=== PATIENT | female | born 1990 | race Caucasian/White ===

== ENCOUNTER 2021-10-29 10:51 | Inpatient (IN) | payer OTHER ==
[2021-10-29] MEDS ORDERED: CARBOPROST TROMETHAMINE 250 MCG/ML 1 ML AMP IM PRN (11:20)
[2021-10-29] MEDS ORDERED: LIDOCAINE 0.5% (PF) 5 MG/ML (50 ML SDV) SQ PRN (11:20)
[2021-10-29] MEDS ORDERED: OXYTOCIN 10 UNIT/ML 1 ML VIAL IM PRN (11:20)
[2021-10-29] MEDS ORDERED: METHYLERGONOVINE 0.2 MG/ML 1 ML AMP IM PRN (11:20)
[2021-10-29] MEDS ORDERED: TERBUTALINE 1 MG/ML VIAL SQ PRN (11:20)
[2021-10-29] MEDS: LACTATED RINGERS 1,000 ML IV SCH ×2 (11:44→12:20)
[2021-10-29 12:00] LABS: Basophils % (A) 0 %; Eosinophils % (A) 0 %; HCT 41.9 % (34.0-46.0); HGB 13.8 gm/dL (11.4-16.0); Lymphocytes # (A) 1.6 k/uL (1.0-4.8); Lymphocytes % (A) 13 %; MCHC 32.8 g/dL (31.0-37.0); MCV 94.6 fL (80.0-100.0); Mean Platelet Volume 9.8; Monocytes # (A) 0.5 k/uL (0-1.0); Monocytes % (A) 4 %; Neutrophils # (A) 10.1 k/uL (1.3-7.7); Neutrophils % (A) 81 %; Platelet Count 207 k/uL (150-450); RBC 4.43 m/uL (3.80-5.40); RDW 13.1 % (11.5-15.5); WBC 12.4 k/uL (3.8-10.6)
[2021-10-29] MEDS ORDERED: BUPIVACAINE (PF) 0.25% 30 ML VIAL ONE ×2 (12:06→18:20)
[2021-10-29] MEDS ORDERED: fentaNYL (PF) 50 MCG/ML 5 ML AMP ONE ×2 (12:06→18:20)
[2021-10-29] MEDS ORDERED: SODIUM CHLORIDE 0.9% 100 ML BAG ONE (12:06)
--- NOTE | 2021-10-29 12:27 | P.HPOB ---
History of Present Illness H&P Date: 10/29/21 Chief Complaint: IUP @ 40 weeks, labor This is a 31 yo at 40 0/7 weeks that presents to labor and delivery with c/o contractions that began around 2AM. She is noting some bloody show with contractions. She denies LOF. She has been receiving routine care with myself which been essentially uncomplicated. On bloodwork this patient has a blood type of O+, rubella status immune, RPR is nonreactive, hepatitis B surface antigen negative, HIV negative, group beta strep culture on 10/01. Review of Systems Constitutional: Denies chills, Denies fatigue, Denies fever Ears, nose, mouth and throat: Denies headache Cardiovascular: Reports leg edema Respiratory: Denies dyspnea Gastrointestinal: Denies nausea, Denies vomiting Genitourinary: Reports Past Medical History Past Medical History: No Reported History History of Any Multi-Drug Resistant Organisms: None Reported Past Surgical History: No Surgical Hx Reported Past Anesthesia/Blood Transfusion Reactions: No Reported Reaction Past Psychological History: No Psychological Hx Reported Smoking Status: Former smoker Past Alcohol Use History: None Reported Past Drug Use History: None Reported - Past Family History Mother Family Medical History: No Reported History Medications and Allergies Allergies Allergy/AdvReac Type Severity Reaction Status Date / Time Sulfa (Sulfonamide Allergy Rash/Hives Verified 10/29/21 11:14 Antibiotics) Exam Osteopathic Statement: *. No significant issues noted on an osteopathic structural exam other than those noted in the History and Physical/Consult. Vital Signs Temp Pulse Resp BP Pulse Ox 10/29/21 11:36 97.8 F 78 16 123/75 99 Intake and Output 10/28/21 10/29/21 10/29/21 22:59 06:59 14:59 Other: Weight 78.471 kg Targeted physical exam is performed and state in general this a well-nourished well-developed female in no acute distress breathing is noted to be nonlabored, heart has a regular rhythm, abdomen is gravid and appropriate for gestational age, heart tones are noted to be category 1, contractions are every 1-2 minutes. Results Result Diagrams: 10/29/21 11:43 Abnormal Lab Results - Last 24 Hours (Table) 10/29/21 Range/Units 11:43 WBC 12.4 H (3.8-10.6) k/uL Neutrophils # 10.1 H (1.3-7.7) k/uL Assessment and Plan (1) Term Current Visit: Yes Status: Acute Code(s): Z34.90 - ENCNTR FOR SUPRVSN OF NORMAL , UNSP, UNSP TRIMESTER SNOMED Code(s): 32969827 (2) Active labor Current Visit: Yes Status: Acute Code(s): HBZ5268 - SNOMED Code(s): 109938689 Plan: This is a 31 yo at 40 0/7 weeks that presents with c/o contractions, she is noted to be 4cm dilated, and uncomfortable with contractions. she is requesting an epidural anesthesia is notified and on the unit. Plan amniotomy after epidural, anticipate spontaneous vaginal delivery.
[2021-10-29] MEDS ORDERED: OXYTOCIN 30 UNITS/500 ML NS 30 UNIT in SALINE 1 500ML.BAG IV SCH ×2 (15:00→18:00)
[2021-10-29] MEDS ORDERED: SIMETHICONE 80 MG CHEWABLE PO PRN (17:49)
[2021-10-29] MEDS ORDERED: diphenhydrAMINE 50 MG/ML 1 ML VIAL IVP PRN ×2 (17:49)
[2021-10-29] MEDS ORDERED: ONDANSETRON 4 MG/2 ML VIAL IVP PRN (17:49)
[2021-10-29] MEDS ORDERED: METOCLOPRAMIDE 5 MG/ML 2 ML VIAL IVP PRN (17:49)
[2021-10-29] MEDS ORDERED: NALOXONE 0.4 MG/ML 1 ML VIAL IV PRN ×2 (17:49→19:07)
[2021-10-29] MEDS ORDERED: ZOLPIDEM 5 MG TAB PO PRN (17:49)
[2021-10-29] MEDS ORDERED: diphenhydrAMINE 25 MG CAP PO PRN (17:49)
[2021-10-29] MEDS ORDERED: diphenhydrAMINE 50 MG CAP PO PRN (17:49)
[2021-10-29] MEDS ORDERED: CITRIC ACID-SODIUM CITRATE 15 ML CUP PO ONE (18:06)
[2021-10-29] MEDS ORDERED: OXYTOCIN 30 UNITS/500 ML NS BAG IV ONE (18:20)
[2021-10-29] MEDS ORDERED: MORPHINE SULFATE (PF) 0.3 MG/0.3 ML SYR ONE (18:20)
[2021-10-29] MEDS ORDERED: NALBUPHINE 10 MG/ML (1 ML AMP) ONE (18:20)
--- NOTE | 2021-10-29 19:06 | P.OP ---
Date of Procedure: 10/29/21 Preoperative Diagnosis: IUP @ 40 0/7 weeks, arrest of descent and dilation, cervical swelling Postoperative Diagnosis: same plus nuchal 2, brow presentation Procedure(s) Performed: Primary low transverse section Anesthesia: spinal Surgeon: Allyson Rolle Finishing Operator #1: Ricky Quintero Estimated Blood Loss (ml): 650 IV fluids (ml): 400 Urine output (ml): 150 Pathology: other (placenta) Condition: stable Disposition: observation Indications for Procedure: 31-year-old at 40-0/7 weeks that presented to labor and delivery with complaints of contractions this afternoon. Patient states contractions started around 2:30 this morning she denied loss of fluid. Patient was admitted to labor and delivery and she quickly requested epidural placement. Patient underwent amniotomy and thin meconium-stained fluid was noted. Patient was noted to be 78 cm around 12:30. Patient made no further progress throughout the afternoon remaining 8 cm, cervical swelling was appreciated. Patient was cou nseled on primary secondary to malpresentation of the fetus, after discussion and questions patient agrees with plan and wishes to proceed. Operative Findings: Viable female delivered in a brow presentation, weight of 8 lbs. 3 oz. at 1833, Apgars of 8 and 9 at one and 5 minutes respectively. Normal uterus ovaries and tubes were appreciated. Description of Procedure: Patient was taken back to the operative suite where epidural anesthesia was found be adequate by the anesthesia department. She was then prepped and draped in the normal sterile fashion in the dorsal supine position. A Pfannenstiel skin incision was made the scalpel and carried through the underlying layer of fascia. The fascia was then incised in the midline and extended laterally. The superior aspect the fascial incision was then grasped yuki clamps, elevated and underlying rectus muscles dissected off sharply. The inferior aspect of the fascial incision was then grasped yuki clamps, ablated and the underlying rectus muscle was dissected off sharply. The rectus muscles were in the midline the peritoneum was identified and entered. The bladder blade was then inserted into the pelvis. The vesicouterine peritoneum was identified and the bladder flap was created using sharp and blunt dissection. The bladder blade was then reinserted into the pelvis. The hysterotomy incision was made with the scalpel thin meconium-stained fluid was appreciated the incision was extended laterally the was delivered in a brow presentation double nuchal appreciated reduced upon delivery of the head spontaneous cry was noted at . The umbilical cord was doubly clamped and cut and the was handed off to awaiting RN. The cord blood was then taken. The placenta was then delivered manually and the uterus was exteriorized and cleared of all clots and debris. Uterine incision was then closed with 0 Vicryl in a running locked fashion. A second imbricated suture was performed. Hemostasis was appreciated. The uterus was then returned to the abdomen and the gutters were cleared of all clots and debris. The hysterotomy incision was inspected and found to be hemostatic. The peritoneum was then loosely reapproximated. The rectus muscles were inspected and found to be hemostatic. The fascia was then closed with 0 Vicryl in a running fashion from one lateral edge the midline and the other lateral edge the midline. Subcutaneous tissue was irrigated found to be hemostatic and closed with 3-0 Vicryl in a running fashion. The skin was then closed with 4-0 Vicryl in a subcuticular fashion. Steri-Strips and sterile dressings were applied. All counts were noted be correct 2. Patient and infant tolerated delivery well and are resting comfortably.
[2021-10-29] MEDS ORDERED: HYDROmorphone 0.5 MG/0.5 ML SYRINGE IVP PRN (19:07)
[2021-10-29] MEDS: ACETAMINOPHEN TAB 500 MG TAB PO SCH (20:08)
[2021-10-29] MEDS: SENNOSIDES-DOCUSATE SODIUM 1 EACH TAB PO SCH (20:12)
[2021-10-29] MEDS ORDERED: ACETAMINOPHEN IV (For NPO) 1,000 MG in EMPTY BAG 1 BAG IVPB PRN (21:00)
[2021-10-30] MEDS ORDERED: IBUPROFEN IV 800 MG in SODIUM CHLORIDE 0.9% 250 ML IV PRN ×2
[2021-10-30] MEDS: LACTATED RINGERS 1,000 ML IV SCH ×3 (02:06→07:07)
[2021-10-30] MEDS: IBUPROFEN 600 MG TAB PO SCH ×4 (03:00→20:55)
[2021-10-30] MEDS: ACETAMINOPHEN TAB 500 MG TAB PO SCH ×4 (06:33→23:22)
[2021-10-30 07:00] LABS: Basophils % (A) 0 %; Eosinophils % (A) 0 %; HCT 35.3 % (34.0-46.0); HGB 11.6 gm/dL (11.4-16.0); Lymphocytes # (A) 1.7 k/uL (1.0-4.8); Lymphocytes % (A) 14 %; MCV 94.1 fL (80.0-100.0); Mean Platelet Volume 9.6; Monocytes # (A) 0.4 k/uL (0-1.0); Monocytes % (A) 4 %; Neutrophils # (A) 9.2 k/uL (1.3-7.7); Neutrophils % (A) 80 %; Platelet Count 174 k/uL (150-450); RBC 3.75 m/uL (3.80-5.40); RDW 13.1 % (11.5-15.5); WBC 11.6 k/uL (3.8-10.6)
[2021-10-30] MEDS: SENNOSIDES-DOCUSATE SODIUM 1 EACH TAB PO SCH ×2 (08:13→19:54)
--- NOTE | 2021-10-30 09:41 | P.PNOBGPC ---
Subjective - Subjective Principal diagnosis: POD 1 LTCS, arrest of descent and dilation, brow presentation Interval history: Patient is doing well postoperatively. She is ambulating and voiding without difficulty. She is tolerating a regular diet without nausea or vomiting. She is breast-feeding without difficulty. She states her lochia is moderate. Pain is well-controlled with ibuprofen and Tylenol Patient reports: Reports appetite normal, Reports voiding normally, Reports pain well controlled, Reports ambulating normally : doing well, nursing well Objective - Vital Signs Latest vital signs: Vital Signs Temp Pulse Resp BP Pulse Ox 10/30/21 08:00 97.9 F 83 16 99/63 98 10/30/21 04:00 97.9 F 61 16 102/66 98 10/30/21 02:00 16 10/30/21 00:07 98 10/30/21 00:00 97.4 F L 73 16 104/63 10/29/21 22:07 18 10/29/21 21:00 90 16 107/58 10/29/21 20:30 84 16 110/55 10/29/21 20:00 79 16 106/58 97 10/29/21 19:45 90 18 110/57 95 10/29/21 19:30 90 16 115/60 97 10/29/21 19:15 88 16 124/88 98 10/29/21 19:00 98.3 F 90 16 144/67 100 10/29/21 11:36 97.8 F 78 16 123/75 99 10/29/21 11:19 97.9 F 78 16 123/75 99 Intake and Output 10/29/21 10/30/21 10/30/21 22:59 06:59 14:59 Intake Total 400 Output Total 1500 2200 Balance -1100 -2200 Intake: IV 400 Output: Urine 750 2200 Uretheral (Dorado) 800 Output, Quantitative 750 Blood Loss Other: Voiding Method Indwelling Catheter Indwelling Catheter - Exam Extremities: Present: normal, edema Abdomen: Present: normal appearance, soft Incision: Present: normal, dry, intact Uterus: Present: normal, firm - Labs Labs: Abnormal Lab Results - Last 24 Hours (Table) 10/29/21 10/30/21 Range/Units 11:43 06:03 WBC 12.4 H 11.6 H (3.8-10.6) k/uL RBC 3.75 L (3.80-5.40) m/uL Neutrophils # 10.1 H 9.2 H (1.3-7.7) k/uL Assessment and Plan (1) Term Current Visit: Yes Status: Acute Code(s): Z34.90 - ENCNTR FOR SUPRVSN OF NORMAL , UNSP, UNSP TRIMESTER SNOMED Code(s): 83999482 (2) Active labor Current Visit: Yes Status: Acute Code(s): XWO8410 - SNOMED Code(s): 946993845 (3) Arrest of descent, delivered, current hospitalization Current Visit: Yes Status: Acute Code(s): O62.1 - SECONDARY UTERINE INERTIA SNOMED Code(s): 09398101 (4) Arrest of dilation, delivered, current hospitalization Current Visit: Yes Status: Acute Code(s): O62.1 - SECONDARY UTERINE INERTIA SNOMED Code(s): 26146521 (5) Brow presentation of fetus Current Visit: Yes Status: Acute Code(s): O32.3XX0 - MATERNAL CARE FOR FACE, BROW AND CHIN PRESENTATION, UNSP SNOMED Code(s): 2364829 Plan: Patient is doing well postoperatively, encouraged increase ambulation. Plan to continue routine postoperative care and anticipate discharge home tomorrow.
--- NOTE | 2021-10-30 10:45 | P.PN ---
Progress Note - Text Progress Note Date: 10/30/21 Postoperative day 1 status post section , and epidural morphine given for postoperative analgesia, patient doing well, there is no anesthesia related complications, Patient had no headache, vital signs stable , Assessment and plan= postop day 1 status post , doing well there is no anesthesia related complication.
[2021-10-31] MEDS: IBUPROFEN 600 MG TAB PO SCH ×2 (02:40→08:40)
[2021-10-31] MEDS: ACETAMINOPHEN TAB 500 MG TAB PO SCH ×2 (05:56→10:07)
[2021-10-31] MEDS: SENNOSIDES-DOCUSATE SODIUM 1 EACH TAB PO SCH (08:41)
[2021-10-31 09:40] VITALS: BP 111/72; PULSE 70; RESP 17; TEMP 97.8
--- NOTE | 2021-10-31 09:41 | P.DS ---
Providers Date of admission: 10/29/21 11:24 Expected date of discharge: 10/31/21 Attending physician: Allyson Rolle Primary care physician: Stated None - Discharge Diagnosis(es) (1) Term Current Visit: Yes Status: Acute (2) Active labor Current Visit: Yes Status: Acute (3) Arrest of descent, delivered, current hospitalization Current Visit: Yes Status: Acute (4) Arrest of dilation, delivered, current hospitalization Current Visit: Yes Status: Acute (5) Brow presentation of fetus Current Visit: Yes Status: Acute Hospital Course: This is a 31-year-old 1 now para 1 that presented to labor and delivery on 10/29 with complaints of regular painful contractions. For full details on this patient please see the dictated history and physical. Patient noted contractions had begun around 2:30 that morning. Patient was admitted to labor and delivery where she quickly requested epidural placement secondary to discomfort. Patient underwent amniotomy and thin meconium-stained fluid was appreciated patient progressed to 7-8 cm around noon that day and made no f urther progress past 8 cm, cervical swelling was appreciated by that evening and was recommended. Multiple questions were answered and patient agreed with plan. Patient was taken back for a primary secondary to arrest of descent and dilation, brow presentation was noted on delivery of the infant. Viable female delivered at 1833, weight of 8 lbs. 3 oz., Apgars of 8 and 9 at one and 5 minutes respectively. Patient's postoperative course has been uneventful. On this postoperative day #2 she is ambulating and voiding without difficulty. She tolerating regular diet without nausea or vomiting. She states her pain is well-controlled. She does wish discharge home. Patient Condition at Discharge: Good Plan - Discharge Summary Follow up Appointment(s)/Referral(s): Allyson Rolle DO [Doctor of Osteopathic Medicine] - 2 Weeks Patient Instructions/Handouts: (DC), (GEN) Discharge Disposition: HOME SELF-CARE
== END 2021-10-31 10:40 | disposition home or self-care (01) | DRG 788 ==
LOC: FBPOP 10:51 → 4FBP 11:24
PROVIDERS: ADMIT Obstetrics & Gynecology Obstetrics; ATTEND Obstetrics & Gynecology Obstetrics
PROC: 10D00Z1 Extraction of Products of Conception, Low, Open Approach (ICD-10-PCS; principal; 2021-10-29 18:00)
DX: O32.3XX0 Maternal care for face, brow and chin presentation, not applicable or unspecified (principal); O62.0 Primary inadequate contractions; O62.1 Secondary uterine inertia; O69.81X0 Labor and delivery complicated by cord around neck, without compression, not applicable or unspecified; O77.0 Labor and delivery complicated by meconium in amniotic fluid; Z28.310 Unvaccinated for COVID-19; Z88.2 Allergy status to sulfonamides; Z3A.40 40 weeks gestation of pregnancy; Z37.0 Single live birth; Z87.891 Personal history of nicotine dependence
CPT/HCPCS: 59025; 85025; 86850; 86900; 86901; 99213

== ENCOUNTER 2023-11-08 09:53 | Inpatient (IN) | payer BC, OTHER ==
[2023-11-08] MEDS ORDERED: TRANEXAMIC 1,000 MG/100ML-NACL 1,000 MG in EMPTY BAG 1 BAG IV PRN (10:09)
[2023-11-08] MEDS ORDERED: OXYTOCIN 10 UNIT/ML 1 ML VIAL IM PRN (10:09)
[2023-11-08] MEDS ORDERED: CARBOPROST TROMETHAMINE 250 MCG/ML 1 ML AMP IM PRN (10:09)
[2023-11-08] MEDS ORDERED: miSOPROStoL 200 MCG TAB PO PRN (10:09)
[2023-11-08] MEDS ORDERED: METHYLERGONOVINE 0.2 MG/ML 1 ML AMP IM PRN (10:09)
[2023-11-08] MEDS: LACTATED RINGERS 1,000 ML IV ONE (10:24)
[2023-11-08 10:42] LABS: Basophils # (A) 0.1 k/uL (0-0.2); Basophils % (A) 1 %; Eosinophils # (A) 0.1 k/uL (0-0.7); Eosinophils % (A) 1 %; HGB 12.7 gm/dL (11.4-16.0); Lymphocytes # (A) 2.3 k/uL (1.0-4.8); Lymphocytes % (A) 28 %; MCH 30.2 pg (25.0-35.0); MCHC 32.7 g/dL (31.0-37.0); MCV 92.4 fL (80.0-100.0); Mean Platelet Volume 8.6; Monocytes # (A) 0.5 k/uL (0-1.0); Monocytes % (A) 6 %; Neutrophils # (A) 4.9 k/uL (1.3-7.7); Neutrophils % (A) 61 %; Platelet Count 218 k/uL (150-450); RBC 4.22 m/uL (3.80-5.40); RDW 13.8 % (11.5-15.5)
[2023-11-08] MEDS: CITRIC ACID-SODIUM CITRATE 15 ML CUP PO ONE (11:39)
[2023-11-08] MEDS: LACTATED RINGERS 1,000 ML IV SCH ×2 (11:40→13:46)
[2023-11-08] MEDS ORDERED: MORPHINE SULFATE (PF) 0.3 MG/0.3 ML SYR ONE (12:11)
[2023-11-08] MEDS ORDERED: PHENYLEPHRINE-0.9% NACL SYG 1,000 MCG/10 ML SYRINGE ONE (12:11)
[2023-11-08] MEDS ORDERED: OXYTOCIN 10 UNIT/ML 1 ML VIAL ONE (12:11)
[2023-11-08] MEDS ORDERED: ONDANSETRON 4 MG/2 ML VIAL ONE (12:11)
[2023-11-08] MEDS ORDERED: ePHEDrine 50 MG/ML 1 ML VIAL ONE (12:11)
[2023-11-08] MEDS ORDERED: diphenhydrAMINE 50 MG/ML 1 ML VIAL IVP PRN ×3 (12:43→13:06)
[2023-11-08] MEDS ORDERED: NALBUPHINE 10 MG/ML (10 ML MDV) IV PRN (12:43)
[2023-11-08] MEDS ORDERED: NALOXONE 0.4 MG/ML 1 ML VIAL IV PRN ×2 (12:43→13:06)
[2023-11-08] MEDS ORDERED: ONDANSETRON 4 MG/2 ML VIAL IVP PRN ×2 (12:43→13:06)
--- NOTE | 2023-11-08 13:03 | P.HPOB ---
History of Present Illness H&P Date: 11/08/23 Chief Complaint: IUP at 39-1/7 weeks, history of x 1 desires repeat 33-year-old at 39-1/7 weeks that presents to labor and delivery for scheduled repeat section. Patient has been receiving routine care which has been essentially uncomplicated. Patient notes good movement denies vaginal bleeding contractions or loss of fluid. Patient was counseled on options for delivery throughout the and patient elected repeat section. On blood work this patient is a blood type of O+, rubella status immune, hepatitis B surface and negative, HIV negative, RPR is nonreactive, group B strep culture is negative. Review of Systems Constitutional: Denies chills, Denies fatigue, Denies fever Ears, nose, mouth and throat: Denies headache Cardiovascular: Denies leg edema Respiratory: Denies dyspnea Gastrointestinal: Denies nausea, Denies vomiting Genitourinary: Reports Past Medical History Past Medical History: No Reported History History of Any Multi-Drug Resistant Organisms: None Reported Past Surgical History: Section Past Anesthesia/Blood Transfusion Reactions: No Reported Reaction Past Psychological History: No Psychological Hx Reported Smoking Status: Former smoker Past Alcohol Use History: None Reported Past Drug Use History: None Reported - Past Family History Mother Family Medical History: No Reported History Medications and Allergies Home Medications Medication Instructions Recorded Confirmed Type Aspirin 81 mg PO DAILY 11/08/23 11/08/23 History Vit No.179/Iron/Folic 1 each PO DAILY 11/08/23 11/08/23 History [ Tablet] Allergies Allergy/AdvReac Type Severity Reaction Status Date / Time Sulfa (Sulfonamide Allergy Rash/Hives Verified 11/08/23 10:08 Antibiotics) Exam Osteopathic Statement: *. No significant issues noted on an osteopathic structural exam other than those noted in the History and Physical/Consult. Vital Signs Temp Pulse Resp BP Pulse Ox 11/08/23 09:59 98 F 83 16 111/66 97 Intake and Output 11/07/23 11/08/23 11/08/23 22:59 06:59 14:59 Other: Weight 74.843 kg Targeted physical exam is performed this date General is well-nourished well- developed female in no acute distress, breathing is nonlabored, heart has a regular rate and rhythm, abdomen is gravid, cervical exam is deferred, heart tones are noted to be category 1 and she is not stephenie Results Result Diagrams: 11/08/23 10:29 Assessment and Plan (1) History of section Current Visit: Yes Status: Acute Code(s): Z98.891 - HISTORY OF UTERINE SCAR FROM PREVIOUS SURGERY SNOMED Code(s): 787132712 (2) Term Current Visit: No Status: Acute Code(s): Z34.90 - ENCNTR FOR SUPRVSN OF NORMAL , UNSP, UNSP TRIMESTER SNOMED Code(s): 10198058 Plan: 33-year-old G2, P1 at 39-1/7 weeks that presents for scheduled repeat section. Patient is counseled on risks of surgery including not limited to infection, bleeding, damage to bladder, bowel, injury. Patient states understanding. Will proceed to operating suite.
[2023-11-08] MEDS ORDERED: diphenhydrAMINE 25 MG CAP PO PRN (13:06)
[2023-11-08] MEDS ORDERED: METOCLOPRAMIDE 5 MG/ML 2 ML VIAL IVP PRN (13:06)
[2023-11-08] MEDS ORDERED: diphenhydrAMINE 50 MG CAP PO PRN (13:06)
[2023-11-08] MEDS ORDERED: ZOLPIDEM 5 MG TAB PO PRN (13:06)
--- NOTE | 2023-11-08 13:06 | P.OP ---
Date of Procedure: 11/08/23 Preoperative Diagnosis: IUP at 39-1/7 weeks, history of section x 1 desires repeat Postoperative Diagnosis: Same plus anterior bladder adhesions Procedure(s) Performed: Repeat section Anesthesia: spinal Surgeon: Allyson Rolle Timber Inspector #1: Klarissa Herrera Estimated Blood Loss (ml): 357 IV fluids (ml): 600 Urine output (ml): 100 (Clear yellow) Pathology: none sent Condition: stable Disposition: observation Indications for Procedure: History of section x 1 desires repeat Operative Findings: Viable female delivered at 1234, weight of 7 pounds 1 ounce, Apgars of 9 and 10 at 1 and 5 minutes respectively. Description of Procedure: The patient was prepped and draped in the usual fashion after spinal anesthesia was administered by the anesthesia department.. A Pfannenstiel incision was made and extended of the abdominal cavity without difficulty. The bladder was noted to be adherent with significant rectus diastases noted upon entry into the abdomen. A 2 cm incision was made in the transverse plane of the lower uterine segment to enter the uterus at which time clear fluid was noted. The incision was extended in both directions using the bandage scissors. The head was encountered within the field and delivered up and through the incision where the nose and mouth were thoroughly suctioned. Remainder of the was delivered onto the surgical field where the cord was doubly clamped, cut, and the infant was passed for resuscitative measures with weight and Apgars as noted above. The placenta was delivered manually, intact, and was grossly normal with a grossly normal three-vessel cord. The uterus was exteriorized and the interior cavity of the uterus swept of any remaining placental and membranous fragments with a laparotomy sponge. The margins of the incision were grasped with Red clamps and the incision closed in 2 layers. First layer was a running locking layer of 0 Vicryl from margin to margin followed by a second layer of imbricating 0 Vicryl from margin to margin. Any small points of bleeding were then made hemostatic with the Bovie. Once hemostasis was a chieved, the posterior cul-de-sac was suctioned with a guard and the uterine and ovarian findings are as noted above. The uterus was replaced within the abdominal cavity and the gutters swept of any remaining blood fluid or clot. Small amount of oozing was noted from prior adhesions, Surgicel powder was placed along the area and hemostasis was appreciated. The incision was again reexamined and hemostasis was noted to be excellent. Any small point of bleeding were made hemostatic with the Bovie. Once hemostasis was achieved the parietal peritoneum was loosely reapproximated. The layer of muscles were examined and made hemostatic with the Bovie. Attention was then turned to the fascia which was closed with a running stitch of 0 Vicryl proceeding from the lateral margins to the . The subcutaneous tissues were irrigated, made hemostatic with the Bovie, and reapproximated with a running stitch of 30 Vicryl. The skin was reapproximated with 4-0 Vicryl. Estimated blood loss for the case was approximately 357 mL. All sponge instrument and needle counts are correct. There were no complications. The patient tolerated the procedure well and proceeded to the recovery room in stable condition. Both mother and are resting comfortably in recovery.
[2023-11-08] MEDS ORDERED: OXYTOCIN 30 UNITS/500 ML NS 30 UNIT in SALINE 1 500ML.BAG IV SCH (13:15)
[2023-11-08] MEDS: ACETAMINOPHEN IV (For NPO) 1,000 MG in EMPTY BAG 1 BAG IVPB PRN (15:31)
[2023-11-08] MEDS: ACETAMINOPHEN TAB 500 MG TAB PO SCH (15:54)
[2023-11-08] MEDS: IBUPROFEN 600 MG TAB PO SCH (20:04)
[2023-11-08] MEDS: SENNOSIDES-DOCUSATE SODIUM 1 EACH TAB PO SCH (20:06)
[2023-11-08] MEDS: IBUPROFEN IV 800 MG in SODIUM CHLORIDE 0.9% 250 ML IV PRN (20:08)
[2023-11-08 21:17] VITALS: RESP 16
--- NOTE | 2023-11-09 07:33 | P.PN ---
Progress Note - Text Progress Note Date: 11/09/23 Patient was seen and examined at bed side. Received intrathecal morphine 300 mcg for postop pain control as per surgeon request. Today postop day 1 -C- section . Today complaining her pain levels 3 out of 10 in severity. Able to ambulate without any difficulty. Denied any weakness. Mild itching. Physical exam: Vitals : stable vitals, afebrile Assessment and plan: S/p postop day 1 - . Continue oral pain medications as needed as per primary care. Please contact anesthesia as needed.
[2023-11-09] MEDS: PRENATAL VIT-IRON-FOLIC ACID 1 EACH TABLET PO SCH (07:58)
[2023-11-09 08:22] LABS: Basophils % (A) 0 %; Eosinophils # (A) 0.1 k/uL (0-0.7); Eosinophils % (A) 2 %; HCT 37.5 % (34.0-46.0); HGB 12.6 gm/dL (11.4-16.0); Lymphocytes # (A) 1.5 k/uL (1.0-4.8); Lymphocytes % (A) 18 %; MCH 31.4 pg (25.0-35.0); MCHC 33.5 g/dL (31.0-37.0); MCV 93.6 fL (80.0-100.0); Mean Platelet Volume 8.5; Monocytes # (A) 0.4 k/uL (0-1.0); Monocytes % (A) 4 %; Neutrophils # (A) 6.5 k/uL (1.3-7.7); Neutrophils % (A) 74 %; Platelet Count 188 k/uL (150-450); RBC 4.01 m/uL (3.80-5.40); RDW 13.8 % (11.5-15.5); WBC 8.7 k/uL (3.8-10.6)
--- NOTE | 2023-11-09 08:26 | P.PNOBGPC ---
Subjective - Subjective Principal diagnosis: Postop day 1 repeat section Interval history: Patient is doing well postoperatively. She is ambulating and voiding without difficulty. She is tolerating a regular diet without nausea or vomiting. States her pain is well-controlled. She denies concerns. She is breast-feeding without difficulty. Patient reports: Reports appetite normal, Reports voiding normally, Reports pain well controlled, Reports ambulating normally [place]: doing well, nursing well Objective - Vital Signs Latest vital signs: Vital Signs Temp Pulse Pulse Resp BP Pulse Ox 11/09/23 00:00 52 L 16 91/57 100 11/08/23 20:00 97.5 F L 52 L 16 104/62 96 11/08/23 17:43 99 11/08/23 15:43 18 96 11/08/23 15:06 99.1 F 58 L 18 101/59 96 11/08/23 14:51 99.2 F 56 L 18 99/57 97 11/08/23 14:36 99.2 F 51 L 16 95/56 96 11/08/23 14:21 99.1 F 63 18 99/58 99 11/08/23 14:06 99.0 F 85 18 104/55 97 11/08/23 13:51 98.8 F 81 16 101/53 97 11/08/23 13:38 16 99 11/08/23 13:36 99.1 F 75 16 99/54 97 11/08/23 13:21 98.3 F 78 16 102/57 98 11/08/23 13:06 97.3 F L 92 16 117/56 97 11/08/23 12:43 79 16 97 11/08/23 09:59 98 F 83 16 111/66 97 Intake and Output 11/08/23 11/09/23 11/09/23 22:59 06:59 14:59 Output Total 1462 1200 Balance -1462 -1200 Output: Urine 1450 1200 Uretheral (Dorado) 1200 Output, Quantitative 12 Blood Loss Other: Voiding Method Indwelling Catheter - Exam Extremities: Present: normal, edema Abdomen: Present: normal appearance, soft Incision: Present: normal, dry, intact Uterus: Present: normal, firm Assessment and Plan (1) History of section Current Visit: Yes Status: Acute Code(s): Z98.891 - HISTORY OF UTERINE SCAR FROM PREVIOUS SURGERY SNOMED Code(s): 517395540 (2) Term Current Visit: No Status: Acute Code(s): Z34.90 - ENCNTR FOR SUPRVSN OF NO RMAL , UNSP, UNSP TRIMESTER SNOMED Code(s): 42288401 (3) Status post section Current Visit: Yes Status: Acute Code(s): Z98.891 - HISTORY OF UTERINE SCAR FROM PREVIOUS SURGERY SNOMED Code(s): 936971028 Plan: Patient is doing well postoperatively. Encourage increased ambulation, anticipate discharge home tomorrow.
[2023-11-10] VITALS: TEMP 97.5
[2023-11-10 09:59] VITALS: BP 98/60; PULSE 43
[2023-11-10] MEDS: SIMETHICONE 80 MG CHEWABLE PO PRN (11:12)
--- NOTE | 2023-11-10 12:24 | P.DS ---
Providers Date of admission: 11/08/23 09:53 Expected date of discharge: 11/10/23 Attending physician: Allyson Rolle Primary care physician: Stated None - Discharge Diagnosis(es) (1) History of section Current Visit: Yes Status: Acute (2) Term Current Visit: No Status: Acute (3) Status post section Current Visit: Yes Status: Acute Hospital Course: 33-year-old G2 now P2 that presented to the hospital yesterday on 11/07 for scheduled repeat section. Patient had been receiving routine care with myself which had been essentially uncomplicated. For full details on this patient please see the dictated history and physical. Patient was taken back to the operating suite where repeat section was performed without difficulty. Anterior wall bladder adhesions were appreciated during section, for full details please see the dictated operative report patient delivered a viable female at 1234, weight of 7 pounds 1 ounce, Apgars of 9 and 10 at 1 and 5 minutes respectively. Patient has done well . On this postoperative day #2 she is ambulating and voiding without difficulty. She is tolerating a regular diet without nausea or vomiting. States her pain is well-controlled. She would like discharge home later today. Patient Condition at Discharge: Good Plan - Discharge Summary Discharge Rx Participant: No New Discharge Prescriptions: No Action Aspirin 81 mg PO DAILY Vit No.179/Iron/Folic [ Tablet] 1 each PO DAILY Discharge Medication List Aspirin 81 mg PO DAILY 11/08/23 [History] Vit No.179/Iron/Folic [ Tablet] 1 each PO DAILY 11/08/23 [History] Follow up Appointment(s)/Referral(s): Allyson Rolle DO [Doctor of Osteopathic Medicine] - 11/22/23 11:15 am (Post Appointment 12-20-2023 at 11:30am) Patient Instructions/Handouts: (DC) Activity/Diet/Wound Care/Special Instructions: No intercourse, tub baths. No heavy lifting greater than a gallon of milk. No driving for two weeks. Call with any fever, shakes or chills, with any pain not alleviated by over the counter meds, or with any questions or concerns. [id number] ibuprofen 600 mg every 6 hours as needed for pain. Discharge Disposition: HOME SELF-CARE
== END 2023-11-10 12:47 | disposition home or self-care (01) | DRG 788 ==
LOC: 4FBP 09:53
PROVIDERS: ADMIT Obstetrics & Gynecology Obstetrics; ATTEND Obstetrics & Gynecology Obstetrics
PROC: 0DNW0ZZ Release Peritoneum, Open Approach (ICD-10-PCS; 2023-11-08)
PROC: 10D00Z1 Extraction of Products of Conception, Low, Open Approach (ICD-10-PCS; principal; 2023-11-08 12:00)
DX: O34.211 Maternal care for low transverse scar from previous cesarean delivery (principal); Z37.0 Single live birth; Z3A.39 39 weeks gestation of pregnancy; O99.892 Other specified diseases and conditions complicating childbirth; N73.6 Female pelvic peritoneal adhesions (postinfective); Z79.82 Long term (current) use of aspirin; Z87.891 Personal history of nicotine dependence; Z88.2 Allergy status to sulfonamides
CPT/HCPCS: 85025; 86850; 86900; 86901